=== PATIENT | female | born 1995 | race Hispanic/Latino ===

== ENCOUNTER 2017-11-24 09:53 | Emergency (ER) | payer BC ==
[~2017-11-24] VITALS: Ht 157.5 cm; Wt 54.4 kg
[2017-11-24] MEDS: ACETAMINOPHEN 325 MG TAB PO ONE (10:10)
--- NOTE | 2017-11-24 11:16 | Diagnostic Imaging Report ---
Exam: Head CT without contrast History: Trauma, fall Comparison studies: Head CT 10/17/2011. Technique: Axial images were obtained from the skull base to the vertex. Coronal and sagittal images reconstructed from the axial data. Intravenous contrast: None Findings: Scalp: No abnormalities. Bones: No fractures, blastic or lytic lesions. Brain sulci: Appropriate for age. Ventricles: Normal in size and configuration. No hydrocephalus. Extra-axial spaces: No masses, no fluid collection. Parenchyma: No abnormal densities. No masses, acute hemorrhage, acute or chronic vascular insults. Sellar/suprasellar region: No abnormalities. Craniocervical junction: Patent foramen magnum. No Chiari one malformation. IMPRESSION: 1. No abnormalities. 2. No changes from the previous head CT of 10/17/2017. Signed by: Dr. Royce Garcia M.D. on 11/24/2017 11:12 AM
== END 2017-11-24 12:01 | disposition home or self-care (01) ==
LOC: ER 09:53
DX: S06.0X1A Concussion with loss of consciousness of 30 minutes or less, initial encounter (principal); W18.09XA Striking against other object with subsequent fall, initial encounter; Y92.012 Bathroom of single-family (private) house as the place of occurrence of the external cause
CPT/HCPCS: 70450; 99283